=== PATIENT | female | born 1960 | race Two or more races ===

== ENCOUNTER → 2016-10-02 | Outpatient (CLI) | payer BC | END | disposition disaster alternative care site (69) | LOC: GRAD 16:20 | DX: R07.9 Chest pain, unspecified (principal); R74.8 Abnormal levels of other serum enzymes; R79.89 Other specified abnormal findings of blood chemistry; I26.99 Other pulmonary embolism without acute cor pulmonale; J84.10 Pulmonary fibrosis, unspecified ==